=== PATIENT | male | born 1965 | race Caucasian/White ===

== ENCOUNTER → 2017-06-22 14:40 | Outpatient (CLI) | payer BC, SELFPAY ==
[2017-06-22 15:15] LABS: International Normalized Ratio 2.8; Prothrombin Time (Protime)PT. 29.6 SECONDS (11.7-14.9)
== END ==
PROVIDERS: Family Provider Family Medicine
DX: I74.9 Embolism and thrombosis of unspecified artery (principal)
CPT/HCPCS: 85610

== ENCOUNTER 2017-09-30 18:21 | Inpatient (IN) | payer BC, SELFPAY ==
[2017-09-30 18:21] VITALS: BP 100/66; PULSE 110; RESP 28; TEMP 37.3; O2SAT 91; BMI 88.2
[2017-09-30 19:09] LABS: Absolute Lymphocyte Count 1.34 X10^3/ul (0.83-4.51); Absolute Neutrophil Count 14.2 X10^3/uL (2.0-7.7); Basophil# 0.02 X10^3/uL; Basophil% 0.1 % (0-1); Eosinophil# 0.01 X10^3/uL; Eosinophils% 0.1 % (0-5); Hematocrit 46.3 % (40-54); Hemoglobin 14.8 g/dl (13.0-16.5); Lymphocyte # 1.34 X10^3/ul (4.0); Lymphocyte % 8.2 % (19-41); Mean Corpuscular Hgb 30.1 pg (27.0-32.0); Mean Corpuscular Volume 94.1 fL (80-94); Mean Platelet Vol. 10.9 fl (6.2-12.0); Monocyte# 0.76 X10^3/uL; Monocyte% 4.6 % (0-10); Neutrophil # 14.21 X10^3/uL (2.7-7.7); Neutrophil % 86.8 % (47-70); Platelet Count 216 K/mm3 (150-450); RBC Distribution Width CV 15.2 % (11.6-14.6); RBC Distribution Width SD 52.3 fl (35.1-43.9); Red Blood Count 4.92 M/mm3 (4.6-6.2); White Blood Count 16.4 K/mm3 (4.4-11.0)
[2017-09-30 19:12] LABS: POSITIVE COUNT NO; POSITIVE DIFFERENTIAL NO; POSITIVE MORPHOLOGY NO
[2017-09-30 19:19] LABS: Anion Gap 9 (5-15); BUN 17 mg/dL (7-18); BUN/Creat Ratio 11.9 RATIO (10-20); Calcium,Total 8.6 mg/dL (8.5-10.1); Chloride 103 mmol/L (98-107); Creatinine, Serum 1.43 mg/dL (0.70-1.30); EST Glomerular Filtration Rate 55 mL/min (>60); Est Glom Filt Rate - Afr Amer 66 mL/min (>60); Estimated Creatinine Clearance 61.68 ml/min; Glucose 155 mg/dL (74-106); Potassium 4.3 mmol/L (3.5-5.1); Sodium Level 136 mmol/L (136-145)
--- NOTE | 2017-09-30 19:52 | ED.DCSUM_ITS ---
- ER Visit Summary Date of Service: 09/30/17 Chief Complaint: [Cellulitis left leg] History of Present Illness: The patient is a 52 M [presents the emergency department with complaint of redness and discomfort in his left leg that started today. Patient states that he has had history of multiple episodes of cellulitis in his left leg. Patient states that he has a history of lymphedema as well as history of DVT. Patient started with fever today and nausea. He denies any cough or sore throat. He denies any abdominal pain. Patient states this is typically how his cellulitis episodes began.] Physical Examination: [HEENT-PERRLA, EOMI. Cranial nerves II through XII grossly intact. TMs clear. Mucous membranes moist. No adenopathy. Cardiovascular-regular rate and rhythm without murmur or ectopy Lungs-clear to auscultation, chest wall stable without crepitus or subcu emphysema Abdomen-normoactive bowel sounds, soft, nontender, no rebound or rigidity, no peritoneal signs. Patient is morbidly obese Extremities-intact ?4, normal range of motion, normal pulses, atraumatic. Patient has significant lymphedema both lower extremities with chronic venous stasis changes noted. Patient has some faint erythema of the left thigh with warmth noted on palpation.] Test Results: [CBC with differential obtained showed an elevated white blood cell count of 16.4, hemoglobin 14.4, hematocrit 46.3, platelets 216. Chemistries unremarkable.] Emergency Department Course and Treatment: [Patient was medicated with Unasyn 3 g IV.] Treatment Plan: [Admit for IV antibiotics] Disposition: [Admit] Impression: [Left leg cellulitis] This note was generated with [facility] dictation software. It may contain incorrect words, spelling, and punctuation that were not noted in review of the chart prior to signing ED Disposition - Plan for ED Patient: Chief Complaint: Cellulitis Referrals: Frnakie Morgan [Primary Care Provider] -
[2017-09-30 19:59] LABS: Lactic Acid 4.2 mmol/L (0.4-2.0)
--- NOTE | 2017-09-30 20:35 | PCM.HP.STD ---
Problem List (1) Cellulitis of left thigh Status: Acute (2) History of DVT (deep vein thrombosis) Status: Chronic (3) Morbid obesity Status: Chronic Comment: BMI 85 (4) Sleep disorder breathing Status: Chronic (5) Tinea unguium Status: Chronic (6) Toe pain, left Status: Chronic (7) Toe pain, right Status: Chronic History of Present Illness Date of Admission: 09/30/17 Chief Complaint: Left thigh cellulitis The patient is a 52 year old male w/ h/o morbid obesity, lymphedema, and DVT admitted for left thigh cellulitis. He has multiple admissions in the past for repeated episodes of cellulitis. He complained of redness, swelling and pain in his left thigh that started today. Nothing made the redness better or worse. As the day progressed, he noted worsening pain. Pain was burning and dull aching as well. He had chill and fever. He also has nausea but no vomiting. He has no other associated symptoms. Past Medical History Past Medical History (Chronic Problems): Chronic Problems Sleep disorder breathing (Chronic) Toe pain, right (Chronic) Toe pain, left (Chronic) Tinea unguium (Chronic) history of lymphedema (Chronic) Morbid obesity (Chronic) BMI 85 History of DVT (deep vein thrombosis) (Chronic) Allergies No Known Allergies Allergy (Verified 09/30/17 18:24) Home Medications: Ambulatory Orders Medication Instructions Recorded Warfarin [Coumadin] 12.5 mg PO SUTUWETHSA 04/23/13 Warfarin [Coumadin] 15 mg PO MOFR 04/23/13 Metformin HCl [Metformin HCl ER] 1,000 mg PO DAILY 09/30/17 Clotrimazole [Lotrimin] 1 applicatio TOPICAL PRN PRN 10/01/17 Surgical History: no surgical history, - - Tibial fibular fracture Psychiatric History: No pertinent psych hx Lives: Spouse/ Significant Other Smoking Status: Smoker, status unknown Tobacco Use: Non-smoker Alcohol: None - *Family History Paternal History Items: Heart Disease Maternal History Items: No pertinent history Review of Systems Constitutional: Denies: Chills, Fever, Weight Change HEENT: Denies: Head Aches, Sinus Congestion, Sinus Drainage Cardiovascular: Denies: Chest Pain, Palpitations Respiratory: Denies: Cough, Shortness of breath at rest, Sputum production Gastrointestinal: Denies: Abdominal Pain, Nausea, Vomiting Genitourinary: Denies: Dysuria Musculoskeletal: Denies: Joint Pain, Joint Tenderness Skin: Denies: Rash, Wounds Neurological: Denies: Numbness, Tingling, Focal weakness Psychiatric: Denies: Anxiety, Depression, Homicidal Ideations, Suicidal Ideations Hematologic/ Lymphatic: Denies: Easy Bruising, Easy Bleeding VTE Information - Inpt Only VTE Present on Admission: No VTE Mechan Device Prophylaxis: SCD's VTE Pharm Prophylaxis ordered?: Yes Patient Problems: Active and Suspected Problems Cellulitis of left thigh (Acute) - Physical Exam General: Alert, Oriented x3, Cooperative HEENT: Atraumatic, PERRLA, EOMI, Normocephalic Neck: Supple, No JVD, Negative Carotid Bruits Lungs: Clear to auscultation, Normal air movement Cardiovascular: Regular rate, No murmurs Abdomen: Bowel Sounds Present, Soft, Non Tender Extremities: No edema, Capillary Refill Less than 3 Seconds Skin: No rashes, No breakdown Musculoskeletal: No Tenderness to Palpation of Joints or Extremities Neurological: Cranial nerves II-XII grossly intact Psych/Mental Status: Normal Affect, Appropriate Vital Signs Temp Pulse Resp BP Pulse Ox 99.1 F 110 H 28 H 100/66 91 09/30/17 18:21 09/30/17 18:21 09/30/17 18:21 09/30/17 18:21 09/30/17 18:21 Oxygen Delivery Method Room Air Weight: 278.959 kg Body Mass Index (BMI) 88.2 Finger Stick Blood Glucose 172 Laboratory Tests Past 24 Hrs 09/30/17 09/30/17 09/30/17 18:54 18:54 18:54 WBC 16.4 H RBC 4.92 Hgb 14.8 Hct 46.3 MCV 94.1 H MCH 30.1 MCHC 32.0 RDW 15.2 H RDW Differential 52.3 H Plt Count 216 MPV 10.9 Immature Gran % (Auto) 0.200 Neut % (Auto) 86.8 H Lymph % (Auto) 8.2 L [place] % (Auto) 4.6 Eos % (Auto) 0.1 Baso % (Auto) 0.1 Absolute Neuts (auto) 14.2 H Absolute Lymphs (auto) 1.34 Total Counted Not Reportable Sodium 136 Potassium 4.3 Chloride 103 Carbon Dioxide 24.0 Anion Gap 9 BUN 17 Creatinine 1.43 H Estim Creat Clear Calc 61.68 Est GFR (MDRD) Af Amer 66 Est GFR (MDRD) Non-Af 55 L BUN/Creatinine Ratio 11.9 Glucose 155 H Lactic Acid 4.2 H* Calcium 8.6 Assessment/Plan All Active Problems Cellulitis of left thigh (Acute) 52 year old male w/ h/o morbid obesity, lymphedema, and DVT admitted for left thigh cellulitis. 1) Left thigh cellulitis: Will start cefazolin. Cultures pending. Monitor. 2) H/o DVT: Resume coumadin. INR 2.3 3) Lactic acidosis: Probably secondary to poor perfusion secondary to underlying hypotension. Hydration. Resolved. Repeat lactate 1 3) DMII: Resume home meds. Monitor. 4) Prophylaxis: Coumadin
[2017-09-30 20:53] VITALS: BMI 88.0
[2017-09-30] MEDS: 0.9% Normal Saline 1,000 ML 150 ML IV (21:00)
[2017-09-30 21:01] VITALS: BP 137/70; PULSE 88; RESP 20; TEMP 36.3; O2SAT 96
[2017-09-30 21:04] LABS: International Normalized Ratio 2.3; Prothrombin Time (Protime)PT. 25.2 SECONDS (11.7-14.9)
[2017-09-30 22:59] LABS: Reflex Lactate? Y
[2017-09-30] MEDS: Cefazolin 1 GM/50 ML BAG IV (23:37)
[2017-09-30 23:56] LABS: Bedside Glucose 191 mg/dL (70-110)
[2017-10-01 03:05] VITALS: BP 132/61; PULSE 86; RESP 18; TEMP 36.9; O2SAT 95
[2017-10-01] MEDS: 0.9% Normal Saline 1,000 ML 150 ML IV (04:19)
[2017-10-01] MEDS: Cefazolin 1 GM/50 ML BAG IV (06:16)
[2017-10-01 06:23] LABS: Absolute Lymphocyte Count 1.11 X10^3/ul (0.83-4.51); Absolute Neutrophil Count 9.1 X10^3/uL (2.0-7.7); Basophil# 0.02 X10^3/uL; Basophil% 0.2 % (0-1); Eosinophil# 0.06 X10^3/uL; Eosinophils% 0.5 % (0-5); Hematocrit 43.1 % (40-54); Hemoglobin 13.4 g/dl (13.0-16.5); Lymphocyte # 1.11 X10^3/ul (4.0); Lymphocyte % 10.1 % (19-41); Mean Corp Hgb Conc 31.1 g/gl (32-36); Mean Corpuscular Hgb 29.5 pg (27.0-32.0); Mean Corpuscular Volume 94.7 fL (80-94); Mean Platelet Vol. 10.4 fl (6.2-12.0); Monocyte% 6.3 % (0-10); Neutrophil # 9.13 X10^3/uL (2.7-7.7); Neutrophil % 82.7 % (47-70); Platelet Count 190 K/mm3 (150-450); RBC Distribution Width CV 15.4 % (11.6-14.6); RBC Distribution Width SD 53.3 fl (35.1-43.9); Red Blood Count 4.55 M/mm3 (4.6-6.2)
[2017-10-01 06:28] LABS: International Normalized Ratio 2.4; Prothrombin Time (Protime)PT. 26.3 SECONDS (11.7-14.9)
[2017-10-01 06:29] LABS: Anion Gap 8 (5-15); BUN 17 mg/dL (7-18); BUN/Creat Ratio 17.5 RATIO (10-20); Calcium,Total 8.3 mg/dL (8.5-10.1); Chloride 103 mmol/L (98-107); Creatinine, Serum 0.97 mg/dL (0.70-1.30); EST Glomerular Filtration Rate 86 mL/min (>60); Est Glom Filt Rate - Afr Amer 104 mL/min (>60); Estimated Creatinine Clearance 90.94 ml/min; Glucose 118 mg/dL (74-106); Sodium Level 140 mmol/L (136-145)
[2017-10-01 06:30] LABS: Bedside Glucose 119 mg/dL (70-110)
[2017-10-01 06:36] LABS: POSITIVE COUNT NO; POSITIVE DIFFERENTIAL NO; POSITIVE MORPHOLOGY NO
[2017-10-01 08:56] VITALS: BP 125/66; PULSE 86; RESP 18; TEMP 36.4; O2SAT 94
--- NOTE | 2017-10-01 09:00 | PN_ITS ---
Patient Problems: Active and Suspected Problems Cellulitis of left thigh (Acute) Subjective: Chief complaint: Follow-up after admission for acute left lower extremity cellulitis and septic shock. Patient seen and examined. No acute events overnight. Denies fever chills. Swelling and erythema of the left lower extremity is getting better. He denies any other complaints. His vital signs are stable, afebrile. - Physical Exam General: Alert, Oriented x3, Cooperative, No apparent distress HEENT: Atraumatic, PERRLA, EOMI, Normocephalic Oral: Moist Mucosa, No Gingival or Mucosal Lesions/ Ulcerations Neck: Supple, No JVD, Negative Carotid Bruits, Trachea Midline, Thyroid Normal Size and Texture Lungs: Clear to auscultation, No rhonchi, No wheeze, No rales, Diminished Cardiovascular: Regular rate, Regular Rhythm, Normal S1, Normal S2, PMI Normal Abdomen: Bowel Sounds Present, Soft, Non Tender, Non-Distended, No Hepato- splenomegaly, Obese - Morbidly obese. Extremities: No clubbing, No cyanosis, Edema - Edema, stasis dermatitis, significant lymphedema. Swelling and erythema of the left leg and left thigh is getting better. Lymphatic: No Cervical, Supraclavicular, or Inguinal Adenopathy Neurological: Cranial nerves II-XII grossly intact, Motor Exam 5/5 strength throughout Psych/Mental Status: Normal Affect, Appropriate, Alert and oriented to time, place, person, mood and affect Vital Signs Temp Pulse Resp BP Pulse Ox 98.5 F 86 18 132/61 H 95 10/01/17 03:05 10/01/17 03:05 10/01/17 03:05 10/01/17 03:05 10/01/17 03:05 Oxygen Flow Rate (L/min) 2 Oxygen Delivery Method Nasal Cannula Weight: 614 lb 15.989 oz Body Mass Index (BMI) 88.0 Intake and Output for Last 24 Hours 09/29/17 09/30/17 10/01/17 23:59 23:59 23:59 Intake Total 398 / 398 1314 / 1314 Output Total 225 / 225 Balance 398 / 398 1089 / 1089 Laboratory Tests Past 24 Hrs 09/30/17 10/01/17 10/01/17 23:35 05:40 05:40 WBC 11.0 RBC 4.55 L Hgb 13.4 Hct 43.1 MCV 94.7 H MCH 29.5 MCHC 31.1 L RDW 15.4 H RDW Differential 53.3 H Plt Count 190 MPV 10.4 Immature Gran % (Auto) 0.200 Neut % (Auto) 82.7 H Lymph % (Auto) 10.1 L [place] % (Auto) 6.3 Eos % (Auto) 0.5 Baso % (Auto) 0.2 Absolute Neuts (auto) 9.1 H Absolute Lymphs (auto) 1.11 Total Counted Not Reportable PT INR Sodium 140 Potassium 4.0 Chloride 103 Carbon Dioxide 29.0 Anion Gap 8 BUN 17 Creatinine 0.97 Estim Creat Clear Calc 90.94 Est GFR (MDRD) Af Amer 104 Est GFR (MDRD) Non-Af 86 BUN/Creatinine Ratio 17.5 Glucose 118 H Lactic Acid 1.0 Calcium 8.3 L 10/01/17 05:40 WBC RBC Hgb Hct MCV MCH MCHC RDW RDW Differential Plt Count MPV Immature Gran % (Auto) Neut % (Auto) Lymph % (Auto) [place] % (Auto) Eos % (Auto) Baso % (Auto) Absolute Neuts (auto) Absolute Lymphs (auto) Total Counted PT 26.3 H INR 2.4 Sodium Potassium Chloride Carbon Dioxide Anion Gap BUN Creatinine Estim Creat Clear Calc Est GFR (MDRD) Af Amer Est GFR (MDRD) Non-Af BUN/Creatinine Ratio Glucose Lactic Acid Calcium POC Glucose 10/01/17 09/30/17 06:20 23:42 POC Glucose 119 H 191 H Medical Necessity - Tobacco Use Smoking Status: Smoker, status unknown Tobacco Use: Non-smoker Assessment/Plan All Active Problems Cellulitis of left thigh (Acute) This is a 52 years old male patient presented to the emergency room because of left leg redness and discomfort as well as subjective fever and he was found to have acute left lower extremity cellulitis and septic shock. #1 left lower extremity cellulitis: In context of history of significant bilateral leg edema, morbid obesity and history of recurrent cellulitis of the lower extremities. He is on IV cefazolin. His vital signs stabilized, blood pressure improved. He has been afebrile. Blood cultures are pending. Lactic acid is back to normal. Plan to continue same treatment. #2 septic shock: Based on elevated lactic acid above for which was 4.2. Patient received appropriate IV fluid therapy and his lactic acid is back to normal. Blood pressure stabilized, no more tachycardia. He has been afebrile. Plan to continue IV cefazolin as above. #3 type 2 diabetes mellitus: Blood sugar stable. Continue metformin, continue insulin sliding scale and Accu-Cheks. #4 History of DVTs: Continue Coumadin, INR is 2.4. #5 DVT prophylaxis: On Coumadin, INR therapeutic. This note was generated with [employer] dictation software. It may contain incorrect words, spelling, and punctuation that were not noted in checking the note before signing. Code Visit Inpatient E&M: 62328 Subs Hosp L2
[2017-10-01 11:26] LABS: Bedside Glucose 120 mg/dL (70-110)
--- NOTE | 2017-10-01 12:03 | CASEMGMT ---
SEE RN SONDRA ASSESS LINK: Intro role to RN SONDRA. Pt resting in bed, awake/alert. Sig Other, Yi @ bedside. Pt willing to participate in assessment and is able to answer all questions appropriately. Pt states would like info on Advanced Directives. Alana SANCHEZ, notified. Pt wishes to discharge home and denies any needs for home health at this time. Await PT/OT eval. DC PLAN: Home No needs Dina OLMOS RN, CM
--- NOTE | 2017-10-01 13:01 | CASEMGMT ---
Pt requested to complete LW/POA forms. SW assisted pt in completing LW/POA forms, pt given originals and copies, and copies placed on chart. No further social work needs anticipated. DANGELO Schroeder, MASTER RIGGER
[2017-10-01] MEDS: Cefazolin 2 GM in 0.9% Normal Saline 100 ML IV ×2 (13:18→21:20)
[2017-10-01 16:40] VITALS: BP 109/61; PULSE 90; RESP 18; TEMP 36.3; O2SAT 93
[2017-10-01] MEDS: 0.9% NaCl Peripheral Flush Adult/Peds IV ×2 (16:48→21:20)
[2017-10-01 17:16] LABS: Bedside Glucose 135 mg/dL (70-110)
[2017-10-01 21:00] VITALS: BP 146/76; PULSE 84; RESP 18; TEMP 36.8; O2SAT 92
[2017-10-01 21:36] LABS: Bedside Glucose 128 mg/dL (70-110)
[2017-10-02 02:50] VITALS: BP 135/75; PULSE 91; RESP 18; TEMP 36.9; O2SAT 94
[2017-10-02] MEDS: 0.9% NaCl Peripheral Flush Adult/Peds IV (06:20)
[2017-10-02] MEDS: Cefazolin 2 GM in 0.9% Normal Saline 100 ML IV (06:20)
[2017-10-02 06:31] LABS: Bedside Glucose 120 mg/dL (70-110)
[2017-10-02 07:45] VITALS: BP 137/71; PULSE 80; RESP 20; TEMP 36.3; O2SAT 98
--- NOTE | 2017-10-02 08:53 | DCINST_ITS ---
- Discharge Diagnoses Current Active Problems: Current Active and Chronic Problems Cellulitis of left thigh (Acute) You will use the following diet at home:: Calorie/Carbohydrate Controlled ( specify 1200, 1400, etc) - 1800 supriya Your food should be the consistency of: Regular Discharge Activity: Return to Normal Activity Weight Bearing Status: Weight bearing as tolerated Call your doctor if you observe: Fever of 101 or Higher, Shortness of breath, Dizziness, Fainting spells, Chest pain, Increased palpitations (irregular heartbeat), Uncontrolled pain Allergies/Adverse Reactions: Allergies No Known Allergies Allergy (Verified 09/30/17 18:24) Medications to take at Discharge Warfarin [Coumadin] 12.5 mg PO SUTUWETHSA 04/23/13 Warfarin [Coumadin] 15 mg PO MOFR 04/23/13 Metformin HCl [Metformin HCl ER] 1,000 mg PO DAILY 09/30/17 Clotrimazole [Lotrimin] 1 applicatio TOPICAL PRN PRN 10/01/17 Amox/Clavulanate Tablet [Augmentin Tablet] 875 mg PO Q12H #14 tab 10/02/17 The following prescriptions were given: Amox/Clavulanate Tablet [Augmentin Tablet] 875 mg PO Q12H #14 tab Primary Care Physician: Frankie Morgan [Primary Care Provider] - Please follow up with your Primary Care Physician in: 2 weeks. Test Results: Test results from this visit will be discussed in further detail at your follow- up appointment, if applicable.
--- NOTE | 2017-10-02 10:46 | NURSING ---
pt requested to be d/c'ed hedy due to 's appointment at 1pm. same completed.
--- NOTE | 2017-10-02 13:48 | DS.PCM_ITS ---
Discharge Date and Diagnosis Date of Admission: 09/30/17 Date of Discharge: 10/02/17 - Primary Discharge Diagnosis Acute left lower extremity cellulitis in context of history of chronic bilateral lymphedema. - Secondary Discharge Diagnosis Chronic Problems Sleep disorder breathing (Chronic) Toe pain, right (Chronic) Toe pain, left (Chronic) Tinea unguium (Chronic) history of lymphedema (Chronic) Morbid obesity (Chronic) BMI 85 History of DVT (deep vein thrombosis) (Chronic) Hospital Course and Treatment Operations: None Procedures: None Summary of Care Provided: Patient seen and examined on the day of discharge and appeared to be stable to be discharged home. He denies any more complaints. Erythema of the left lower extremity significant improved. He has been afebrile. Vital signs are stable - Physical Exam General: Alert, Oriented x3, Cooperative, No apparent distress. HEENT: Atraumatic, PERRLA, EOMI. Neck: Supple, No JVD, Negative Carotid Bruits, Trachea Midline, Thyroid Normal. Lungs: Diminished breath sounds bilateral, otherwise clear, No rhonchi, No wheeze, No rales. Cardiovascular: Regular rate, Regular Rhythm, Normal S1, Normal S2, PMI Normal. Abdomen: Bowel Sounds Present, Soft, Non Tender, Non-Distended, No Hepato- splenomegaly. Extremities: No clubbing, No cyanosis, No edema Skin: No rashes, No breakdown. Significant bilateral lower extremity lymphedema , stasis dermatitis. Erythema of the left lower extremity improved. Neurological: Neuro grossly intact Vital Signs are stable. Hospital course: The patient is a 52 year old M admitted because of left leg redness and discomfort as well as subjective fever and he was found to have acute left lower extremity cellulitis complicated by septic shock. On admission, patient had leukocytosis, was tachycardic and his lactic acid was 4.2 which is consistent with septic shock by criteria. He was found to have increasing left lower extremity erythema and swelling. He has a history of chronic bilateral lower extremity lymphedema. He was treated with IV cefazolin as well as IV fluids. With IV fluid therapy as well as IV antibiotics, his white blood cell count returned back to normal and his lactic acidosis normalized. He has been afebrile throughout admission and his blood pressure stable. Erythema and swelling of the left lower extremity improved. Blood culture revealed no growth up to the time of of discharge. Patient discharged home in a stable medical condition, discharged on Augmentin twice daily for 7 days, recommended follow-up PCP in 2 weeks. Discharge Activity: Return to Normal Activity Weight Bearing Status: Weight bearing as tolerated Call your doctor if you observe: Fever of 101 or Higher, Shortness of breath, Dizziness, Fainting spells, Chest pain, Increased palpitations (irregular heartbeat), Uncontrolled pain Home Medications: Medications to take at Discharge Warfarin [Coumadin] 12.5 mg PO SUTUWETHSA 04/23/13 Warfarin [Coumadin] 15 mg PO MOFR 04/23/13 Metformin HCl [Metformin HCl ER] 1,000 mg PO DAILY 09/30/17 Clotrimazole [Lotrimin] 1 applicatio TOPICAL PRN PRN 10/01/17 Amox/Clavulanate Tablet [Augmentin Tablet] 875 mg PO Q12H #14 tab 10/02/17 Following Prescrptions Were Given to Patient: Amox/Clavulanate Tablet [Augmentin Tablet] 875 mg PO Q12H #14 tab Primary Care Physician: Frankie Morgan [Primary Care Provider] - Please follow up with your Primary Care Physician in: 2 weeks. Disposition: Home Minutes spent on discharge:: 26 Patient Condition:: Stable Medical Necessity - Tobacco Use Tobacco Use: Non-smoker Meaningful Use Info Meaningful Use Diagnoses (Choose all that apply): None applicable Code Visit Inpatient E&M: 40757 Disch Hosp
== END 2017-10-02 10:35 | disposition home or self-care (01) | DRG 871 ==
LOC: ED 19:52 → MS2 20:37
PROVIDERS: Admitting Provider Internal Medicine; Emergency Provider Emergency Medicine; Family Provider Family Medicine; Visit Provider Hospitalist
DX: A41.9 Sepsis, unspecified organism (principal); R65.21 Severe sepsis with septic shock; L03.116 Cellulitis of left lower limb; Z68.45 Body mass index [BMI] 70 or greater, adult; E11.9 Type 2 diabetes mellitus without complications; I89.0 Lymphedema, not elsewhere classified; E66.01 Morbid (severe) obesity due to excess calories; Z79.01 Long term (current) use of anticoagulants; Z79.84 Long term (current) use of oral hypoglycemic drugs; Z79.899 Other long term (current) drug therapy; Z86.718 Personal history of other venous thrombosis and embolism
CPT/HCPCS: 36415; 80048; 82962; 83605; 85025; 85610; 87040; 97162; 97166; 97802; 99282; J7030; A4216; J0295

== ENCOUNTER → 2018-01-18 06:54 | Outpatient (CLI) | payer BC, SELFPAY ==
--- NOTE | 2018-01-18 07:49 | CPS ---
Phone order from [facility] to do lung diffusion and N2 washout only.
--- NOTE | 2018-01-20 07:02 | PFT ---
INTRODUCTION: The patient is a 52-year-old male that presents for pulmonary function testing secondary to a diagnosis of shortness of breath. Due to the patient's size, he was unable to fit in the body box. Nitrogen washout was therefore attempted. Spirometry was not completed. INTERPRETATION: Lung volumes were measured by determining the functional residual capacity in determining the lung divisions by a vital capacity maneuver (Nitrogen Washout). Although attempted, the patient did not completely washout. Therefore, the results are unreliable. Diffusing capacity by single breath CO is mildly reduced at 74% of predicted. IMPRESSION: The patient's morbid obesity prevented adequate testing. Spirometry was not completed and lung volume results are unreliable. Diffusing capacity is mildly reduced.
== END ==
PROVIDERS: Family Provider Family Medicine; Referring Provider Nurse Practitioner Acute Care; Visit Provider Nurse Practitioner Acute Care
DX: R06.02 Shortness of breath (principal)
CPT/HCPCS: 94727; 94729

== ENCOUNTER 2018-04-30 11:00 | Outpatient (RCR) | payer BC, SELFPAY | END 2018-05-09 23:59 | LOC: NS 11:00 | PROVIDERS: Family Provider Family Medicine; Referring Provider Nurse Practitioner Acute Care; Visit Provider Nurse Practitioner Acute Care | DX: E66.1 Drug-induced obesity (principal); Z68.45 Body mass index [BMI] 70 or greater, adult | CPT/HCPCS: 97802; 97803 ==

== ENCOUNTER 2018-06-04 11:00 | Outpatient (RCR) | payer BC, SELFPAY ==
[2018-01-15 07:08] VITALS: BMI 91.8
== END 2018-06-09 23:59 ==
LOC: NS 11:00
PROVIDERS: Family Provider Family Medicine; Referring Provider Nurse Practitioner Acute Care; Visit Provider Nurse Practitioner Acute Care
DX: E66.1 Drug-induced obesity (principal); Z68.45 Body mass index [BMI] 70 or greater, adult
CPT/HCPCS: 97803

== ENCOUNTER 2018-07-02 13:00 | Outpatient (RCR) | payer BC, SELFPAY ==
[2018-01-15 07:08] VITALS: BMI 91.8
== END 2018-07-09 23:59 ==
LOC: NS 13:00
PROVIDERS: Family Provider Family Medicine; Referring Provider Nurse Practitioner Acute Care; Visit Provider Nurse Practitioner Acute Care
DX: E66.01 Morbid (severe) obesity due to excess calories (principal); Z68.45 Body mass index [BMI] 70 or greater, adult; Z71.3 Dietary counseling and surveillance
CPT/HCPCS: 97803

== ENCOUNTER 2018-07-16 15:43 | Outpatient (RCR) | payer BC, SELFPAY ==
[2018-01-15 07:08] VITALS: BMI 91.8
== END 2018-08-09 23:59 ==
LOC: NS 15:43
PROVIDERS: Family Provider Family Medicine; Referring Provider Nurse Practitioner Acute Care; Visit Provider Nurse Practitioner Acute Care
DX: E66.01 Morbid (severe) obesity due to excess calories (principal); Z68.45 Body mass index [BMI] 70 or greater, adult; Z71.3 Dietary counseling and surveillance
CPT/HCPCS: 97803

== ENCOUNTER 2018-08-27 09:56 | Outpatient (RCR) | payer BC, SELFPAY ==
[2018-01-15 07:08] VITALS: BMI 91.8
== END 2018-09-08 23:59 ==
LOC: NS 09:56
PROVIDERS: Referring Provider Nurse Practitioner Acute Care; Visit Provider Nurse Practitioner Acute Care
DX: E66.01 Morbid (severe) obesity due to excess calories (principal); Z68.45 Body mass index [BMI] 70 or greater, adult; Z71.3 Dietary counseling and surveillance
CPT/HCPCS: 97803

== ENCOUNTER 2018-09-23 09:56 | Outpatient (RCR) | payer BC, SELFPAY ==
[2018-01-15 07:08] VITALS: BMI 91.8
== END 2018-10-09 23:59 ==
LOC: NS 09:56
PROVIDERS: Referring Provider Nurse Practitioner Acute Care; Visit Provider Nurse Practitioner Acute Care
DX: E66.01 Morbid (severe) obesity due to excess calories (principal); Z68.45 Body mass index [BMI] 70 or greater, adult; Z71.3 Dietary counseling and surveillance
CPT/HCPCS: 97803

== ENCOUNTER 2018-10-24 13:26 | Outpatient (RCR) | payer BC, SELFPAY ==
[2018-01-15 07:08] VITALS: BMI 91.8
== END 2018-11-09 23:59 ==
LOC: NS 13:26
PROVIDERS: Referring Provider Nurse Practitioner Acute Care; Visit Provider Nurse Practitioner Acute Care
DX: E66.01 Morbid (severe) obesity due to excess calories (principal); Z68.45 Body mass index [BMI] 70 or greater, adult; Z71.3 Dietary counseling and surveillance
CPT/HCPCS: 97803

== ENCOUNTER 2018-12-04 11:00 | Outpatient (RCR) | payer BC, SELFPAY ==
[2018-01-15 07:08] VITALS: BMI 91.8
== END 2018-12-09 23:59 ==
LOC: NS 11:00
PROVIDERS: Referring Provider Nurse Practitioner Acute Care; Visit Provider Nurse Practitioner Acute Care
DX: E66.01 Morbid (severe) obesity due to excess calories (principal); Z68.45 Body mass index [BMI] 70 or greater, adult; Z71.3 Dietary counseling and surveillance
CPT/HCPCS: 97803

== ENCOUNTER 2019-01-01 11:00 | Outpatient (RCR) | payer MEDICARE, SELFPAY ==
[2018-01-15 07:08] VITALS: BMI 91.8
== END 2019-01-09 23:59 ==
LOC: NS 11:00
PROVIDERS: Referring Provider Nurse Practitioner Acute Care; Visit Provider Nurse Practitioner Acute Care
DX: E66.01 Morbid (severe) obesity due to excess calories (principal); Z68.45 Body mass index [BMI] 70 or greater, adult; E11.65 Type 2 diabetes mellitus with hyperglycemia; Z71.3 Dietary counseling and surveillance
CPT/HCPCS: 97803

== ENCOUNTER 2019-02-03 11:00 | Outpatient (RCR) | payer MEDICARE, SELFPAY ==
[2018-01-15 07:08] VITALS: BMI 91.8
== END 2019-02-08 23:59 ==
LOC: NS 11:00
PROVIDERS: Referring Provider Nurse Practitioner Acute Care; Visit Provider Nurse Practitioner Acute Care
DX: Z71.3 Dietary counseling and surveillance (principal); E66.01 Morbid (severe) obesity due to excess calories; Z68.45 Body mass index [BMI] 70 or greater, adult; E11.65 Type 2 diabetes mellitus with hyperglycemia
CPT/HCPCS: 97803

== ENCOUNTER 2019-02-18 12:01 | Outpatient (RCR) | payer MEDICARE, SELFPAY ==
[2018-01-15 07:08] VITALS: BMI 91.8
== END 2019-03-11 23:59 ==
LOC: NS 12:01
PROVIDERS: Referring Provider Nurse Practitioner Acute Care; Visit Provider Nurse Practitioner Acute Care
DX: Z71.3 Dietary counseling and surveillance (principal); E66.01 Morbid (severe) obesity due to excess calories; Z68.45 Body mass index [BMI] 70 or greater, adult; E11.65 Type 2 diabetes mellitus with hyperglycemia
CPT/HCPCS: 97803

== ENCOUNTER → 2019-03-14 16:43 | Outpatient (CLI) | payer MEDICARE, SELFPAY ==
[2019-03-14 17:33] LABS: BNP,B-Type NATRIURETIC PEPTIDE 19.5 pg/mL (0-100)
[2019-03-14 17:34] LABS: D-Dimer Quantitative (DVT/PE) < 0.27 FEU/ug/m (0.27-0.49)
== END ==
PROVIDERS: Referring Provider Family Medicine; Visit Provider Family Medicine
DX: J40 Bronchitis, not specified as acute or chronic (principal); R06.02 Shortness of breath; R09.02 Hypoxemia; I89.0 Lymphedema, not elsewhere classified
CPT/HCPCS: 83880; 85379

== ENCOUNTER 2019-04-01 14:37 | Outpatient (RCR) | payer MEDICARE, SELFPAY ==
[2018-01-15 07:08] VITALS: BMI 91.8
== END 2019-04-11 23:59 ==
LOC: NS 14:37
PROVIDERS: Referring Provider Nurse Practitioner Acute Care; Visit Provider Nurse Practitioner Acute Care
DX: Z71.3 Dietary counseling and surveillance (principal); E66.01 Morbid (severe) obesity due to excess calories; Z68.45 Body mass index [BMI] 70 or greater, adult; E11.65 Type 2 diabetes mellitus with hyperglycemia
CPT/HCPCS: 97803

== ENCOUNTER 2019-04-20 05:49 | Emergency (ER) | payer MEDICARE, SELFPAY ==
[2019-04-20 05:50] VITALS: BP 195/108; PULSE 80; RESP 20; TEMP 36.4; O2SAT 80; BMI 82.5
--- NOTE | 2019-04-20 06:10 | ED.DCSUM_ITS ---
- ER Visit Summary Date of Service: 04/20/19 Chief Complaint: Abdominal pain History of Present Illness: The patient is a 53 M who presents with abdominal pain that is gotten progressively worse over the past 3 hours. Patient states the pain is been constant. Patient describes the pain as cramping. Patient states the pain is over the right mid abdomen and right lower abdomen. Patient states nothing makes it better or worse. Patient denies any nausea or vomiting. Patient denies any diarrhea, melena, or hematochezia. Patient denies any dysuria or hematuria. Patient denies any radiation to his back or flank. Patient denies any chest pain or shortness of breath. Patient denies any fevers or chills. Physical Examination: Oral signs are stable except for an elevated blood pressure of 195/108. Patient is afebrile. Patient is in no acute distress. Oral mucosa is pink and moist. Neck is supple. Trachea is midline. There is no JVD. Heart was regular rate and rhythm. Lungs are clear and equal bilaterally. Abdomen is soft. Bowel sounds are normal. There is right upper and right lower abdominal tenderness. There is no rebound or guarding noted. Cranial nerves II through XII are intact. There are no focal motor or sensory deficits noted. Test Results: CBC and comprehensive metabolic profile were obtained and were within normal limits. Urinalysis was ordered and is pending. Acute abdominal x-rays were ordered and are pending. Emergency Department Course and Treatment: Patient was given IV fluids, morphine, and Zofran. Disposition: Care of the patient was turned over to the oncoming physician pending urinalysis and x-ray results. Impression: Abdominal pain This note was generated with [employer] dictation software. It may contain incorrect words, spelling, and punctuation that were not noted in review of the chart prior to signing ED Disposition - Plan for ED Patient: Disposition: Home or Assisted Living Diagnosis: Abdominal pain Instructions: ABDOMINAL PAIN, Unkown Cause, (Male) Prescriptions: Hydrocodone Bitart/Apap 5-325 [[place] 5MG-325MG] 1 tab PO Q6H PRN PRN 3 Days #10 tab PRN Reason: Pain Prescription Printed Ondansetron [Zofran Odt] 4 mg PO Q8H PRN PRN #10 tab PRN Reason: Nausea Prescription Printed Referrals: Frankie Morgan [Primary Care Provider] - 3-5 Days
[2019-04-20] MEDS: Ondansetron 4 MG/2 ML Vial IV (06:18)
[2019-04-20] MEDS: 0.9% Normal Saline 1,000 ML 1000 ML IV (06:18)
[2019-04-20] MEDS: Morphine 4 MG/ML Syringe IV ×2 (06:18→06:35)
--- NOTE | 2019-04-20 06:35 | RAD_ITS ---
STUDY: X-RAY - ACUTE ABDOMINAL SERIES REASON FOR EXAM: Male, 53 years old. ABDOMINAL PAIN. MORBID OBESITY. H/O PE, DVT TECHNIQUE: Single view of the chest. Supine, and erect view(s) of the abdomen were obtained. [id number] images. COMPARISON: Frontal chest x-ray 07/31/2012. FINDINGS: Linear interstitial changes in the lung bases, minimally increased. Areas of hyperinflation in the upper lung zones. Normal size heart. Normal mediastinum and marilu. Normal visualized pulmonary arteries. Normal visualized aortic arch and descending thoracic aorta. There is a non-specific bowel gas pattern. Inferior vena cava along the right upper lumbar spine. Hepatomegaly. The soft tissue structures of the abdomen and pelvis are unremarkable. Diastases of the symphysis pubis by 1.8 cm. RAD/Acute Abdomen Inc Chest IMPRESSION: No evidence of obstruction detected. Atelectasis and/or fibrosis in the lung bases, component of COPD possible. Hepatomegaly. Diastases of the symphysis pubis. Electronically Signed: Tonya Mai MD at 7:24 EST , Service support ,
[2019-04-20 06:39] LABS: Absolute Lymphocyte Count 1.14 X10^3/uL (0.83-4.51); Basophil# 0.07 X10^3/uL; Basophil% 0.8 % (0-1); Eosinophil# 0.02 X10^3/uL; Eosinophils% 0.2 % (0-5); Hematocrit 47.9 % (40-54); Hemoglobin 14.8 g/dL (13.0-16.5); Lymphocyte # 1.14 X10^3/ul (4.0); Lymphocyte % 13.1 % (19-41); Mean Corp Hgb Conc 30.9 g/dL (32-36); Mean Corpuscular Hgb 28.7 pg (27.0-32.0); Mean Platelet Vol. 10.4 fl (6.2-12.0); Monocyte# 0.42 X10^3/uL; Monocyte% 4.8 % (0-10); NRBC Flagged by Analyzer 0 % (0-5); Neutrophil # 6.98 X10^3/uL (2.7-7.7); Neutrophil % 80.2 % (47-70); Platelet Count 224 K/mm3 (150-450); RBC Distribution Width CV 14.8 % (11.6-14.6); RBC Distribution Width SD 50.8 fl (35.1-43.9); Red Blood Count 5.15 M/mm3 (4.6-6.2); White Blood Count 8.7 K/mm3 (4.4-11.0)
[2019-04-20 06:48] LABS: ALB/GLOB Ratio 0.8 RATIO (0.9-2.4); AST(SGOT) 12 U/L (15-37); Alanine Aminotransfer ALT/SGPT 30 U/L (16-61); Albumin, Serum 3.5 g/dL (3.2-5.0); Alkaline Phosphatase 64 U/L (45-117); Anion Gap 8 (5-15); BUN 24 mg/dL (7-18); BUN/Creat Ratio 25.9 RATIO (10-20); Calcium,Total 9.2 mg/dL (8.5-10.1); Chloride 103 mmol/L (98-107); Creatinine, Serum 0.93 mg/dL (0.70-1.30); EST Glomerular Filtration Rate 90 mL/min (>60); Est Glom Filt Rate - Afr Amer 109 mL/min (>60); Estimated Creatinine Clearance 93.76 ml/min; Globulin 4.4 g/dL (2.2-4.2); Glucose 179 mg/dL (74-106); Lipase 83 U/L (73-393); Potassium 4.2 mmol/L (3.5-5.1); Protein, Total 7.9 g/dL (6.4-8.2); Sodium Level 134 mmol/L (136-145)
[2019-04-20] MEDS: HYDROmorphone 1 MG/ML Syringe IV (07:48)
[2019-04-20 07:53] LABS: Red Blood Cells-Urine 0 SEEN /hpf (0-5)
[2019-04-20 07:58] LABS: Color, Urine Yellow (Yellow); Glucose, Dipstick Normal (Normal); Ketone-Dipstick 5 mg/dl (Negative); Leukocyte Esterase-Dipstick 25 /ul (Negative); Nitrite-Dipstick Negative (Negative); Occult Blood-Urine Negative /ul (Negative); Protein-Dipstick 30 mg/dl (Negative); Specific Gravity, Urine 1.025 (1.002-1.030); Urine Bilirubin Dipstick Negative (Negative); Urine Clarity Sl. Cloudy (Clear); Urine Urobilinogen Normal (Normal)
[2019-04-20 08:05] LABS: Bacteria RARE /hpf (None Seen); Hyaline Cast 0-5 SEEN /lpf (0-5); Mucous, Urine 1+ /hpf (<or=2+); Squamous Epithelial Cells - UA 0-5 SEEN /hpf (0-5); White Blood Cells 0-5 SEEN /hpf (0-5)
== END 2019-04-20 08:34 | disposition home or self-care (01) ==
PROVIDERS: Emergency Provider Emergency Medicine
DX: R10.9 Unspecified abdominal pain (principal); R03.0 Elevated blood-pressure reading, without diagnosis of hypertension; E66.9 Obesity, unspecified; Z79.01 Long term (current) use of anticoagulants; Z79.899 Other long term (current) drug therapy; Z86.718 Personal history of other venous thrombosis and embolism; Z86.711 Personal history of pulmonary embolism
CPT/HCPCS: 36415; 74022; 80053; 81001; 83690; 85025; 96361; 96374; 96375; 99283; J7030; A4216; J2405

== ENCOUNTER 2019-07-29 15:35 | Outpatient (RCR) | payer MEDICARE, SELFPAY ==
[2018-01-15 07:08] VITALS: BMI 91.8
== END 2019-08-10 23:59 ==
LOC: NS 15:35
PROVIDERS: Referring Provider Nurse Practitioner Acute Care; Visit Provider Nurse Practitioner Acute Care
DX: Z71.3 Dietary counseling and surveillance (principal); E66.01 Morbid (severe) obesity due to excess calories; Z68.45 Body mass index [BMI] 70 or greater, adult; E11.65 Type 2 diabetes mellitus with hyperglycemia
CPT/HCPCS: 97803

== ENCOUNTER 2019-08-12 14:48 | Outpatient (RCR) | payer MEDICARE, SELFPAY | END 2019-09-09 23:59 | LOC: NS 14:48 | PROVIDERS: Referring Provider Nurse Practitioner Acute Care; Visit Provider Nurse Practitioner Acute Care | DX: Z71.3 Dietary counseling and surveillance (principal); E66.01 Morbid (severe) obesity due to excess calories; E11.65 Type 2 diabetes mellitus with hyperglycemia; Z68.45 Body mass index [BMI] 70 or greater, adult | CPT/HCPCS: 97803 ==

== ENCOUNTER 2019-10-01 14:00 | Outpatient (RCR) | payer MEDICARE, SELFPAY | END 2019-10-01 23:59 | disposition home or self-care (01) | LOC: NS 14:00 | PROVIDERS: Referring Provider Nurse Practitioner Acute Care; Visit Provider Nurse Practitioner Acute Care | DX: Z71.3 Dietary counseling and surveillance (principal); E66.01 Morbid (severe) obesity due to excess calories; E11.65 Type 2 diabetes mellitus with hyperglycemia; Z68.45 Body mass index [BMI] 70 or greater, adult | CPT/HCPCS: 97803 ==

== ENCOUNTER 2024-02-24 02:17 | Emergency (ER) | payer MEDICARE, SELFPAY ==
[2024-02-24] VITALS (7 sets, daily range): BP systolic 132–161; BP diastolic 68–92; PULSE 64–100; RESP 14–20; TEMP 36.4–36.6; O2SAT 91–96; BMI 74.2
[2024-02-24 03:08] LABS: Absolute Lymphocyte Count 1.67 X10^3/uL (0.83-4.51); Absolute Neutrophil Count 3.2 X10^3/uL (2.0-7.7); Basophil# 0.08 X10^3/uL; Basophil% 1.3 % (0-1); Eosinophil# 0.49 X10^3/uL; Eosinophils% 8.1 % (0-5); Hematocrit 40.3 % (40-54); Hemoglobin 12.2 g/dL (13.0-16.5); Lymphocyte # 1.67 X10^3/ul (0.83-4.51); Lymphocyte % 27.6 % (19-41); Mean Corp Hgb Conc 30.3 g/dL (32-36); Mean Corpuscular Hgb 30.3 pg (27.0-32.0); Mean Platelet Vol. 9.9 fl (6.2-12.0); Monocyte# 0.46 X10^3/uL; Monocyte% 7.6 % (0-10); NRBC Flagged by Analyzer 0 % (0-5); Neutrophil # 3.22 X10^3/uL (2.7-7.7); Neutrophil % 53.4 % (47-70); Platelet Count 246 K/mm3 (150-450); RBC Distribution Width CV 14.7 % (11.6-14.6); RBC Distribution Width SD 54.3 fl (35.1-43.9); Red Blood Count 4.03 M/mm3 (4.6-6.2)
[2024-02-24 03:23] LABS: Anion Gap 4 (5-15); BUN 19 mg/dL (7-18); BUN/Creat Ratio 26.5 RATIO (10-20); Calcium,Total 9.2 mg/dL (8.5-10.1); Chloride 92 mmol/L (98-107); Creatinine, Serum 0.72 mg/dL (0.70-1.30); EST Glomerular Filtration Rate 119 mL/min (>60); Est Glom Filt Rate - Afr Amer 144 mL/min (>60); Estimated Creatinine Clearance 215.19 ml/min; Glucose 155 mg/dL (74-106); Sodium Level 139 mmol/L (136-145)
[2024-02-24] MEDS: Piperacil/Tazobactam 3.375 GM in 0.9% Normal Saline (50mL MB+) 50 ML IV (03:24)
[2024-02-24 03:52] LABS: Lactic Acid 1.9 mmol/L (0.4-1.9)
[2024-02-24] MEDS: Vancomycin HCl 2,000 MG in 0.9% Normal Saline (500mL Bag) 500 ML 250 MG IV (04:03)
--- NOTE | 2024-02-24 04:15 | RAD_ITS ---
EXAM: XR LEFT FOOT COMPLETE, 3 OR MORE VIEWS CLINICAL INDICATION: ?OSTEOMYELITIS TECHNIQUE: Frontal, lateral and oblique views of the left foot. COMPARISON: No relevant prior studies available. FINDINGS: Significant diffuse osteopenia. Diffuse soft tissue swelling. No acute or healing fracture or malalignment. Possible bone loss involving the second through fifth distal phalanges. Synonymous erosions or osteomyelitis in the appropriate clinical setting. Intra-articular fracture suspected of the head of the fifth proximal phalanx. RAD/Foot min 3 Views IMPRESSION: 1. Recent intra-articular fracture suspected of the head of the fifth proximal phalanx. 2. Possible bone loss involving the second through fifth distal phalanges; cannot exclude erosions or osteomyelitis in the appropriate clinical setting. CT may provide additional useful information. Electronically Signed: Agusto Her MD at 5:23 EST ,
--- NOTE | 2024-02-24 05:22 | EX.ED.DYSGE1 ---
HPI History of Present Illness Chief Complaint: Wound Check Informant: patient and EMS Narrative Narrative: Patient is a 58-year-old male with past medical history of morbid obesity and diabetes. He states that he has had an Ex-Fix on his left lower leg for 2 to 2-1/2 years. He states he recently had to be admitted to [facility] Secondary to some type of lung problem that led to intubation. He states he was discharged from there to [facility] and is on antibiotics for potential lung infection. However he notes that he has had some increased redness and swelling to the top of his left foot and has concern there is now a developing infection there and asked EMS to bring him to the hospital for further evaluation [facility] Medical History (Updated 02/24/24 @ 06:[address] Agusto Loving, DO) History of pulmonary embolus (PE) Cellulitis of left thigh Sleep disorder breathing Toe pain, right Toe pain, left Tinea unguium history of lymphedema Morbid obesity History of DVT (deep vein thrombosis) Home Medications ?Medication ?Instructions ?Recorded ?Last Taken ?Type metformin 500 mg 24 hr 1,000 mg PO BID 09/30/17 09/30/17 12:00 History tablet,extended release (gastric 1000 mg retention) Lactobacillus rhamnosus GG 10 1 cap PO BID 02/24/24 Unknown History billion cell capsule (Culturelle) acetaminophen 325 mg tablet (Pain 650 mg PO Q4H PRN fever or pain 02/24/24 Unknown History Relief (acetaminophen)) acetaminophen 650 mg rectal 650 mg MN Q4H PRN fever or pain 02/24/24 Unknown History suppository albuterol sulfate 90 mcg/actuation 2 inh inhalation Q4H PRN shortness 02/24/24 Unknown History breath activated powder inhaler of breath or wheezing aluminum-magnesium hydroxide 200 30 ml PO Q4H PRN gi distress 02/24/24 Unknown History mg-200 mg/5 mL oral suspension amoxicillin 875 mg-potassium 1 tab PO BID 14 days #28 tabs 02/24/24 Unknown Rx clavulanate 125 mg tablet bisacodyl 10 mg rectal suppository 10 mg MN DAILY PRN constipation 02/24/24 Unknown History dextrose 40 % oral gel (Gluco 15 g PO Q15M PRN hypoglycemia 02/24/24 Unknown History Burst) ergocalciferol (vitamin D2) 1,250 1,250 mcg PO QWEEK 02/24/24 Unknown History mcg (50,000 unit) capsule folic acid 1 mg tablet 1 mg PO DAILY 02/24/24 Unknown History furosemide 40 mg tablet 40 mg PO BID 02/24/24 Unknown History gabapentin 300 mg capsule 300 mg PO Q12H 02/24/24 Unknown History glucagon 1 mg solution for 1 mg IM Q20M PRN hypoglycemia 02/24/24 Unknown History injection (GlucaGen HypoKit) guaifenesin 100 mg/5 mL oral 200 mg PO Q4H PRN cough 02/24/24 Unknown History liquid (Adult Tussin Chest Congestion) guaifenesin 400 mg tablet 1,200 mg PO BID 02/24/24 Unknown History insulin glargine 100 unit/mL (3 20 unit subcut BREAKFAST 02/24/24 Unknown History mL) subcutaneous pen (Lantus Solostar U-100 Insulin) insulin glargine 100 unit/mL (3 30 unit subcut QPM 02/24/24 Unknown History mL) subcutaneous pen (Lantus Solostar U-100 Insulin) insulin regular human 100 unit/mL 15 unit subcut TIDCM 02/24/24 Unknown History injection solution (Humulin R Regular U-100 Insulin) insulin regular human 100 unit/mL See Protocol subcut QPM 02/24/24 Unknown History injection solution (Humulin R Regular U-100 Insulin) ipratropium 0.5 mg-albuterol 3 mg 3 ml inhalation Q8H 02/24/24 Unknown History (2.5 mg base)/3 mL nebulization soln levofloxacin 750 mg tablet 750 mg PO DAILY 02/24/24 Unknown History loratadine 10 mg capsule (Allergy 10 mg PO DAILY 02/24/24 Unknown History Relief (loratadine)) magnesium hydroxide 400 mg/5 mL 30 ml PO DAILY PRN constipation 02/24/24 Unknown History oral suspension (Dulcolax (magnesium hydroxide)) magnesium oxide 400 mg (241.3 mg 400 mg PO QHS 02/24/24 Unknown History magnesium) tablet (MagOx) metformin 500 mg tablet,extended 500 mg PO DAILY 02/24/24 Unknown History release 24 hr multivitamin (Daily Multi-Vitamin 1 tab PO DAILY 02/24/24 Unknown History tablet) polyethylene glycol 3350 17 17 g PO QHS 02/24/24 Unknown History gram/dose oral powder (ClearLax) sennosides 8.6 mg-docusate sodium 1 tab-cap PO BID 02/24/24 Unknown History 50 mg tablet (2-in-1 Laxative) sodium phosphates 19 gram-7 118 ml MN DAILY PRN constipation 02/24/24 Unknown History gram/118 mL enema (Enema) spironolactone 25 mg tablet 25 mg PO DAILY 02/24/24 Unknown History warfarin 7.5 mg tablet 7.5 mg PO QHS 02/24/24 Unknown History Allergy/AdvReac Type Severity Reaction Status Date / Time No Known Allergies Allergy Verified 02/24/24 03:00 Family History (Reviewed 01/15/18 @ 10:47 by Selina Dowell [employer], [employer]-C) Father Heart disease Social History (Updated 01/15/18 @ 14:08 by Selina Dowell [employer], [employer]-C) Smoking Status: Never smoker ROS ROS ED Constitutional Constitutional ED: Denies chills or fever(s) Eyes Eyes: Denies change in vision ENT ENT ED: Denies sore throat Cardiovascular Cardiovascular: Denies chest pain Respiratory/Chest Respiratory/Chest: Denies cough or dyspnea Gastrointestinal Gastrointestinal: Denies abdominal pain, diarrhea, nausea or vomiting Genitourinary Genitourinary ED: Denies dysuria Musculoskeletal Musculoskeletal: Reports other Details: Positive left foot pain Integumentary Reports other Details: Positive redness left foot Neurologic Neurologic: Denies headache(s) Hematologic/Lymphatic Hematologic/Lymphatic: Reports easy bleeding and easy bruising EXAM Physical Exam Const Vital Signs: 02/24/24 02:19 02/24/24 02:23 02/24/24 03:23 Temperature 97.8 F 97.8 F 98 F Temperature Source Oral Oral Temporal Pulse Rate 100 75 64 Respiratory Rate 18 18 20 H Blood Pressure 161/92 H 161/92 H 132/68 H Blood Pressure Mean 115 115 89 Pulse Ox 95 95 96 Oxygen Delivery Method Nasal Cannula Nasal Cannula Nasal Cannula Oxygen Flow Rate (L/min) 6 6 6 02/24/24 04:18 02/24/24 04:23 02/24/24 06:00 Temperature 97.5 F L Temperature Source Temporal Pulse Rate 65 98 95 Respiratory Rate 14 16 16 Blood Pressure 132/68 H 141/85 H 150/79 H Blood Pressure Mean 89 103 102 Pulse Ox 95 95 95 Oxygen Delivery Method Nasal Cannula Nasal Cannula Nasal Cannula Oxygen Flow Rate (L/min) 6 6 6 Positive well nourished, well developed and obese General Appearance ED: well developed Nutritional Appearance: obese HEENT Reports moist mucous membranes HEENT Narrative: No tongue or lip swelling no oral lesions no airway edema or compromise Eyes PERRL and EOMs intact bilaterally General Eye ED: Negative for scleral icterus Neck supple Neck Narrative: No nuchal rigidity or meningeal signs Resp normal respiratory effort and clear to auscultation bilaterally Resp Narrative: Breath sounds are diminished throughout but overall clear to auscultation without signs of respiratory distress Patient is on 6 L nasal cannula which he states is chronic for him Cardio regular rate and regular rhythm GI normal to inspection, nondistended, normoactive bowel sounds, non-tender, non-distended and no masses GI Narrative: Obese soft nontender nondistended with normal active bowel sounds no voluntary guarding or rigidity or pulsatile mass Auscultation: normoactive bowel sounds Palpation: soft Extremity Extremity Narrative: Patient has chronic stasis changes to the bilateral lower extremities which is greatest on the left. There is an Ex-Fix in place on the left leg which she states has been present for 2 to 2-1/2 years. At the site where the Ex-Fix enters the dorsum of the left foot there is mild erythema and soft tissue swelling. There is faint warmth at the site as well. No lymphangitic streaking or active discharge. No crepitance palpated. Neuro oriented x3 and CN's II-XII intact bilaterally Sensorium / Orientation: alert Psych mental status grossly normal Skin Skin Narrative: Chronic stasis changes of the bilateral lower extremities and the mild erythema and soft tissue swelling to the dorsum of the left foot as documented above MDM MDM MDM Narrative Medical decision making narrative: Patient arrived to the ER hypertensive otherwise with stable vitals. He reported that the Ex-Fix is in place for multiple years but a concern for developing infection as he felt there was some discoloration that was not present in the past. Differential diagnosis is for cellulitis versus abscess versus osteomyelitis. Secondary to this basic blood work was obtained as well as blood cultures and an x-ray. Blood work shows no leukocytosis or left shift there is no lactic acidosis noted either. X-ray shows chronic changes and osteopenia and questions potential osteomyelitis in the proper clinical setting. The patient will be given vancomycin and Zosyn with concern for osteomyelitis. However with him being afebrile without having leukocytosis or left shift or lactic acidosis or hypotension I do not feel there is need for admission and IV antibiotics. I do feel is proper to place him on outpatient oral antibiotics and he can follow-up as an outpatient for further evaluation. I discussed the plan of care with the patient he is agreeable to it. And as vitals are stable and workup shows no signs of systemic infection/sepsis or SIRS there is no need for further intervention and he is otherwise safe for discharge History & Record Review Discussion w/independent historian: EMS personnel and Patient Lab Data Attestation: I reviewed the patient's lab results. Labs: Laboratory Results - last 24 hr 02/24/24 02/24/24 02:42 02:48 WBC 6.0 RBC 4.03 L Hgb 12.2 L Hct 40.3 MCV 100.0 H MCH 30.3 MCHC 30.3 L RDW Std Deviation 54.3 H RDW Coeff of Francesco 14.7 H Plt Count 246 MPV 9.9 Immature Gran % (Auto) 2.000 H Neut % (Auto) 53.4 Lymph % (Auto) 27.6 Young % (Auto) 7.6 Eos % (Auto) 8.1 H Baso % (Auto) 1.3 H Absolute Neuts (auto) 3.2 Absolute Lymphs (auto) 1.67 Nucleated RBC % 0 Sodium 139 Potassium 4.0 Chloride 92 L Carbon Dioxide 43.0 H Anion Gap 4 L BUN 19 H Creatinine 0.72 Estim Creat Clear Calc 215.19 Est GFR (MDRD) Af Amer 144 Est GFR (MDRD) Non-Af 119 BUN/Creatinine Ratio 26.5 H Glucose 155 H Lactic Acid 1.9 Calcium 9.2 Radiography Diagnostic Testing: X-ray of the left foot as interpreted by the emergency medicine physician reveals Ex-Fix to be in place with osteopenia of the metatarsal bones and phalanges without free air or foreign body noted Discharge Plan Triage Chief Complaint: Wound Check ED Provider: Agusto Loving Dx/Rx/DC Orders Clinical Impression: Cellulitis of foot, left, Morbid obesity, Insulin dependent diabetes mellitus Instructions: Cellulitis Dc Prescriptions: New amoxicillin-pot clavulanate 875-125 mg tablet 1 tab PO BID 14 Days Qty: 28 0RF No Action metformin 500 MG tablet,ER sony.retention 24 hr 1,000 mg PO BID Patient Comments: for diabetes acetaminophen 650 mg suppository 650 mg MN Q4H PRN (Reason: fever or pain) acetaminophen [Pain Relief (acetaminophen)] 325 mg tablet 650 mg PO Q4H PRN (Reason: fever or pain) albuterol sulfate 90 mcg/actuation aerosol powdr breath activated 2 inh inhalation Q4H PRN (Reason: shortness of breath or wheezing) aluminum-magnesium hydroxide 200-200 mg/5 mL suspension 30 ml PO Q4H PRN (Reason: gi distress) bisacodyl 10 mg suppository 10 mg MN DAILY PRN (Reason: constipation) Culturelle 10 billion cell capsule 1 cap PO BID ergocalciferol (vitamin D2) 1,250 mcg (50,000 unit) capsule 1,250 mcg PO QWEEK Enema 19-7 gram/118 mL enema 118 ml MN DAILY PRN (Reason: constipation) furosemide 40 mg tablet 40 mg PO BID gabapentin 300 mg capsule 300 mg PO Q12H folic acid 1 mg tablet 1 mg PO DAILY GlucaGen HypoKit 1 mg recon soln 1 mg IM Q20M PRN (Reason: hypoglycemia) Rx Instructions: until target blood sugar attained dextrose [Gluco Burst] 40 % gel 15 g PO Q15M PRN (Reason: hypoglycemia) Rx Instructions: until symptoms of low blood sugar are controlled guaifenesin 400 mg tablet 1,200 mg PO BID guaifenesin [Adult Tussin Chest Congestion] 100 mg/5 mL liquid 200 mg PO Q4H PRN (Reason: cough) Humulin R Regular U-100 Insuln 100 unit/mL solution 15 unit subcut TIDCM Patient Comments: [NO ORIGINAL SIG] ipratropium-albuterol 0.5 mg-3 mg(2.5 mg base)/3 mL solution for nebulization 3 ml inhalation Q8H insulin glargine [Lantus Solostar U-100 Insulin] 100 unit/mL (3 mL) insulin pen 20 unit subcut BREAKFAST insulin glargine [Lantus Solostar U-100 Insulin] 100 unit/mL (3 mL) insulin pen 30 unit subcut QPM levofloxacin 750 mg tablet 750 mg PO DAILY Patient Comments: started 02/22 for 7 days Allergy Relief (loratadine) 10 mg capsule 10 mg PO DAILY magnesium oxide [MagOx] 400 mg (241.3 mg magnesium) tablet 400 mg PO QHS metformin 500 mg tablet extended release 24 hr 500 mg PO DAILY Patient Comments: give one tablet to equal 3 tablets in AM for 7 days starting 02/22 magnesium hydroxide [Dulcolax (magnesium hydroxide)] 400 mg/5 mL suspension 30 ml PO DAILY PRN (Reason: constipation) multivitamin [Daily Multi-Vitamin] Tablet 1 tab PO DAILY polyethylene glycol 3350 [ClearLax] 17 gram/dose powder 17 g PO QHS sennosides-docusate sodium [2-in-1 Laxative] 8.6-50 mg tablet 1 tab-cap PO BID spironolactone 25 mg tablet 25 mg PO DAILY warfarin 7.5 mg tablet 7.5 mg PO QHS Humulin R Regular U-100 Insuln 100 unit/mL solution See Protocol subcut QPM Protocol: 6. Sliding Scale Insulin Custom Condition: 151-200 Dose/Route: 2 Units Condition: 201-250 Dose/Route: 4 Units Condition: 251-300 Dose/Route: 6 Units Condition: 301-350 Dose/Route: 8 Units Condition: 351-500 Dose/Route: 10 Units Condition: >400 Dose/Route: 10 Units Instruction: Call MD Protocol Text: Custom Sliding Scale Primary Care Provider: Rosa Jimenez Referrals: Rosa Jimenez MD [Primary Care Provider] - Activity Restrictions/Additional Instructions: Please begin taking the Augmentin which was prescribed today as this will cover both cellulitis and osteomyelitis. If you develop a fever of 100.4 worsening redness or swelling or have any further concerns please return to the ER for repeat evaluation Print Language: [place] Disposition Disposition: Home, Self Care
--- NOTE | 2024-02-24 07:39 | ED.RN ---
THIS NURSE CAME IN FOR AM SHIFT AND ACID BATH MIXER REPORTED THAT PT CAME FROM [facility] BUT IS INSISTING TO GO HOME AND HAVE HIS AND FAMILY CARE FOR HIM. TRANSPORT IS SCHEDULED AND AN ETA OF 0800 THIS MORNING. PT GAVE THIS NURSE VERBAL PERMISSION TO LET THE NURSE AT [facility] KNOW THIS INFORMATION WHEN THEY CALLED FOR AN UPDATE/REPORT. NURSE CALLED NAMED OSBALDO ESPINOZA.
--- NOTE | 2024-02-24 08:29 | ED.RN ---
Physicians called and will be here in another 10-15 min. Original ETA was 830.
[2024-02-25 18:06] LABS: Procalcitonin 0.13 ng/mL (0.00-0.09)
== END 2024-02-24 09:12 | disposition home or self-care (01) ==
PROVIDERS: Emergency Provider Emergency Medicine; PCP Internal Medicine; Visit Provider Emergency Medicine
DX: L03.116 Cellulitis of left lower limb (principal); E66.01 Morbid (severe) obesity due to excess calories; E11.9 Type 2 diabetes mellitus without complications; Z79.4 Long term (current) use of insulin; Z79.01 Long term (current) use of anticoagulants; Z79.899 Other long term (current) drug therapy; Z79.51 Long term (current) use of inhaled steroids; Z86.711 Personal history of pulmonary embolism; Z86.718 Personal history of other venous thrombosis and embolism
CPT/HCPCS: 73630; 80048; 83605; 84145; 85025; 87040; 96365; 96366; 96367; 99285; A4216